=== PATIENT | female | born 1935 | race Caucasian/White ===

== ENCOUNTER → 2024-01-11 13:46 | Outpatient (REF) | payer MEDICARE, SELFPAY | LOC: RAD 13:46 | PROVIDERS: ATTENDING PHYSICIAN Nurse Practitioner Adult Health; FAMILY PHYSICIAN Family Medicine Sports Medicine; REFERRING PHYSICIAN Internal Medicine Cardiovascular Disease | DX: I48.0 Paroxysmal atrial fibrillation (principal) | CPT/HCPCS: 75572; Q9967 ==

== ENCOUNTER 2024-04-24 05:58 | Inpatient (IN) | payer MEDICARE, BC, SELFPAY ==
[2024-04-17 10:43] VITALS: BMI 21.6
[2024-04-17 11:27] LABS: % Basophils 0.8 % (0-2); % Immature Granulocytes 0.2 % (0-0.5); % Lymphocytes 39.8 % (20.5-51.1); % Monocytes 8.1 % (1.7-9.3); % Neutrophils 49.1 % (42.2-75.2); Absolute Basophils 0.1 10^3/uL (0-0.2); Absolute Eosinophils 0.2 10^3/uL (0-0.7); Absolute Lymphocytes 3.6 10^3/uL (1.2-3.4); Absolute Monocytes 0.7 10^3/uL (0.1-0.6); Absolute Neutrophils 4.4 10^3/uL (1.4-6.5); Hematocrit 44.6 % (37.0-47.0); Hemoglobin 14.6 g/dL (12.0-16.0); Mean Corp Hgb Conc. 32.7 g/dL (33.0-37.0); Mean Corpuscular Hgb 28.1 pg (27.0-31.0); Mean Corpuscular Volume 85.9 fL (81.0-99.0); Mean Platelet Volume 10.5 fL (7.4-10.4); Nucleated Red Blood Cells % 0 %; Platelet Count 239 10^3/uL (130-400); Red Blood Cell Count 5.19 10^6/uL (4.20-5.40); Red Cell Dist. Width 14.9 % (11.5-14.5)
[2024-04-17 11:32] LABS: INR 1.18; PT 15.3 Sec (11.4-14.6)
[2024-04-17 11:34] LABS: ALT (SGPT) 25 U/L (0-35); AST (SGOT) 35 U/L (14-36); Albumin 4.5 g/dl (3.5-5.0); Alkaline Phosphatase 84 U/L (38-126); Blood Urea Nitrogen 24 mg/dl (7-17); Calcium 9.4 mg/dl (8.4-10.2); Carbon Dioxide 30 mmol/L (22-30); Chloride 101 mmol/L (98-107); Estimated Creatinine Clearance 42 ml/min; Glucose 95 mg/dl (70-99); Potassium 5.1 mmol/L (3.5-5.1); Sodium 139 mmol/L (135-145); Total Bilirubin 1.1 mg/dl (0.2-1.3); Total Protein 6.9 g/dl (6.3-8.2); eGFR > 60.00
[2024-04-24] VITALS (21 sets, daily range): BP systolic 86–153; BP diastolic 34–59; BMI 22.5
[2024-04-24] MEDS: NSS 500 IV ×2 (06:56→09:40)
--- NOTE | 2024-04-24 07:30 | W.PN.UPDATE ---
Update Note
Progress Note Update
Reviewed Ms. Samuel with the heart team in the preWatchman SDM meeting and discussed a 27mm device, will confirm with intraop imaging. Patient will continue 5 mg Eliquis BID post watchman. Will have 3 month f/u LAURA.
[2024-04-24 08:43] LABS: ACT-LR - POC 221 Seconds (116-155)
--- NOTE | 2024-04-24 08:48 | ITS.CL.PN ---
[employer] Mdm Developer - Procedure Note
Procedure
Procedure Note:
Watchman implantation report
Date: April 24, 2024
History: History of stroke and elevated bleeding risk for multiple falls
Referring: Dr. Brenton Saavedra
Procedure report:
After informed consent and patient safety timeout the patient was sedated under general anesthesia by the anesthesiology service. Dr. Grant performed the LAURA see separate report.
draw fire operator: Ace for watchman implantation
charging machine operator: Eva for vascular access and transseptal puncture
The patient was sedated and the left atrial pended was cleared with LAURA vascular access was performed under direct ultrasound guidance by Dr. Velasquez. An 8 Guatemalan sheath was placed in the right femoral vein and through this sheath a pigtail RF wire
was advanced up to the SVC and exchanged for the watchman sheath and dilator. Under direct LAURA guidance the interatrial fossa was engaged and a low to mid mid stick was performed accessing the left atrium. Heparinization with bolus and drip was
started immediately upon vascular access. The pigtail catheter was engaged in the left atrial appendage and dye shot demonstrated a 23 mm ostium with a greater than 25 mm working depth and a 27 mm device was chosen to engage in close left atrial
appendage.
Utilizing clockwise torque the watchman sheath and 27 mm device engage the distal tip of the appendage and the device was delivered covering the left atrial appendage to the ostium. Tug test demonstrated stable positioning. Ostial position. 20 to
25% compression was noted and shot of the left atrial pended demonstrated no leak and adequate coverage. LAURA also demonstrated no leak or device thrombus apparent. Once we met Pass criteria for device delivery the device was from the
delivery sheath and sheaths and catheters were removed from the left atrium. 25 mg of protamine was given. The access sheath was removed under [id number] suture.
Impression:
27 mm Watchman device
Recommendations:
3 months of half dose oral anticoagulation until LAURA.
Outpatient follow-up with Dr. Saavedra
--- NOTE | 2024-04-24 08:53 | ITS.CL.PN ---
Marine Equipment Engineer - Procedure Note
Procedure
Procedure Note:
WATCHMAN LEFT ATRIAL APPENDAGE OCCLUSION REPORT
Date of Procedure: 04/24/2024
Referring: Dr. Brenton Saavedra MD
Indication: atrial fibrillation with high bleeding risk and high stroke risk
Operators: Darien Velasquez MD, PhD (interventional cardiology); Dr. Jayden Bello MD (electrophysiology); Dr. Hipolito Grant MD (cardiac imaging)
Anesthesia: general anesthesia provided by the anesthesia staff
PROCEDURE: left atrial appendage occlusion with a 27 mm Watchman FLX
ACCESS: 14F right common femoral vein (closure: figure of eight stitch)
ULTRASOUND GUIDED VASCULAR ACCESS (right femoral vein): Ultrasound was utilized for vascular access. The vessel was visualized under ultrasound and noted to be patent. An image of the vessel was stored permanently in the patient's medical record.
Under direct ultrasound guidance, vascular access was obtained using a modified Seldinger technique and a 8 Solomon Islander sheath was placed.
HEMODYNAMIC DATA
LA 10 mmHg
PROCEDURE NARRATIVE:
The patient was intubated and sedated by anesthesiology and then prepped and draped in standard sterile fashion. A LAURA probe was placed by cardiology and imaging performed demonstrating no left atrial appendage thrombus and no pericardial effusion.
Under ultrasound guidance, the right femoral vein was accessed with an 8F sheath placed. Heparin was administered to achieve ACT>300.
The 8F sheath was exchanged over a [employer] RF wire for the Watchman double curve sheath which was advanced to the SVC. The Watchman sheath was then pulled back under fluoroscopic and echo guidance until an appropriate inferior and posterior position
on the septum was achieved. During brief RF application, the wire was advanced through the interatrial septum into the left atrium. The wire was placed in the left upper pulmonary vein as confirmed by fluoroscopy and LAURA. The dilator and sheath
easily tracked across the septum allowing placement of the sheath in the left atrium. Left atrial pressure was measured at 10 mmHg. 250 cc of fluids were given.
A 5F pigtail catheter was advanced through the sheath and placed in the left atrial appendage, and an appendage gram was performed demonstrating anatomy suitable for a 27 mm Watchman FLX device with a 23 mm ostium and greater than 25 mm working
depth. The device was prepped on the back table, the pigtail catheter removed, and the device delivered via the sheath to the left atrial appendage. The device was deployed slowly under continuous fluoroscopic and LAURA visualization. After
deployment, LAURA imaging was performed to assess PASS criteria. The device demonstrated excellent positioning, anchor stability on tug test, appropriate sizing with 20-25% compression, and appropriate seal with no leak at 0, 45, 90, or 135 degrees.
Given PASS criteria were met, the device was then released.
The delivery system retracted back into the sheath and removed from the body. The sheath was retracted into the right atrium with LAURA demonstrating no significant R-L shunt or pericardial effusion. The sheath was removed and the venotomy closed with
[id number] knot. Protamine 25 units was given. The patient was extubated and tolerated the procedure well.
CONCLUSIONS
1. transseptal puncture with LAURA guidance
2. successful deployment of a 27 mm Watchman FLX device under fluoroscopic and LAURA guidance
RECOMMENDATIONS:
1. anticoagulation with Eliquis 2.5 mg BID for 3 months
2. repeat LAURA in 3 months
Copy to: Dr. Brenton Saavedra MD (exhibit carpenter); Dr. Rafael Rodriguez DO (PCP)
Signed: Darien Velasquez MD, PhD
--- NOTE | 2024-04-24 09:51 | PTCARENOTE ---
Bilateral upper extremity BP's w/MAP's 50's. Legs elevated slightly. NSS bolus 250 mls in progress per Sangeeta RISK OFFICER.
--- NOTE | 2024-04-24 13:34 | W.PN.UPDATE ---
Update Note
Progress Note Update
88 yo WF s/p Watchman device implant (same day). She denies cp, sob, lyndsey diet, voiding, EKG SR 1deg AVB, R fem c/d/i no HT, soft. She will resume Eliquis tonight. Activity restrictions reviewed. She will have f/u LAURA in 3 mo. She will f/u dca in 1
mo. She is for d/c home after 2pm.
--- NOTE | 2024-04-24 15:33 | W.DS.TRANS ---
DC Summary - Pad Tufter
-
Discharge Instructions:
Discharge Diagnosis/Procedures Atrial fibrillation post Watchman device
Diet Low Cholesterol
Driving Restrictions No driving for 24 hours
Others Tests Follow Up LAURA has been scheduled for you at
[facility] on 07/19/2024 with
Jaylan. Your pre-admission testing appointment
is 07/12/2024 at 11:20am at [facility],
Ground Floor of the [facility].
Instructions:
Stand-Alone Forms: DC Instructions- Cath/EP Lab
Changes to Home Medications: No
Discharge Medications:
DC Medications w/original date entered in [employer]
apixaban 2.5 mg tablet (Eliquis) 2.5 mg PO BID 04/13/24
ascorbic acid (vitamin C) 500 mg tablet (Vitamin C) 500 mg PO DAILY 04/13/24
azilsartan medoxomil 40 mg tablet (Edarbi) 40 mg PO DAILY 04/13/24
calcium 500 mg (as carbonate)-vitamin D3 5 mcg (200 unit) tablet (Calcium 500 + D) 1 tab PO DAILY 04/13/24
cholecalciferol (vitamin D3) 50 mcg (2,000 unit) capsule (Vitamin D3) 50 mcg PO DAILY 04/13/24
magnesium 200 mg tablet 400 mg PO DAILY 04/13/24
metoprolol succinate 25 mg tablet,extended release 24 hr 12.5 mg PO DAILY 04/13/24
rosuvastatin 10 mg tablet 10 mg PO DAILY 04/13/24
spironolactone 25 mg tablet 25 mg PO DAILY 04/13/24
zinc 50 mg tablet 50 mg PO DAILY 04/13/24
levothyroxine 50 mcg tablet 25 mcg PO DAILY 04/17/24
Home Medication Changes
Pending Results: No
== END 2024-04-24 14:00 | disposition home or self-care (01) | DRG 274 ==
LOC: CATH-IN 05:58
PROVIDERS: Internal Medicine Cardiovascular Disease; ADMITTING PHYSICIAN Internal Medicine Cardiovascular Disease; FAMILY PHYSICIAN Family Medicine Sports Medicine
PROC: 02L73DK Occlusion of Left Atrial Appendage with Intraluminal Device, Percutaneous Approach (ICD-10-PCS; 2024-04-24)
PROC: B246ZZ4 Ultrasonography of Right and Left Heart, Transesophageal (ICD-10-PCS; 2024-04-24)
PROC: B24CZZ4 Ultrasonography of Pericardium, Transesophageal (ICD-10-PCS; 2024-04-24)
DX: I48.0 Paroxysmal atrial fibrillation (principal); I49.3 Ventricular premature depolarization; I44.0 Atrioventricular block, first degree; I10 Essential (primary) hypertension; I25.10 Atherosclerotic heart disease of native coronary artery without angina pectoris; E78.5 Hyperlipidemia, unspecified; E03.9 Hypothyroidism, unspecified; E04.1 Nontoxic single thyroid nodule; N28.9 Disorder of kidney and ureter, unspecified; R00.1 Bradycardia, unspecified; R26.89 Other abnormalities of gait and mobility; I69.398 Other sequelae of cerebral infarction; I69.311 Memory deficit following cerebral infarction; Z79.01 Long term (current) use of anticoagulants; Z96.643 Presence of artificial hip joint, bilateral; Z96.652 Presence of left artificial knee joint; Z79.890 Hormone replacement therapy; Z79.899 Other long term (current) drug therapy
CPT/HCPCS: 33340; 36415; 76937; 80053; 85025; 85347; 85610; 86850; 86900; 86901; 87070; 93005; 93355; C1892; C1894

== ENCOUNTER → 2024-07-12 11:12 | Outpatient (REF) | payer MEDICARE, BC, SELFPAY | LOC: SDSPAT 11:12 | PROVIDERS: ATTENDING PHYSICIAN Internal Medicine Cardiovascular Disease; FAMILY PHYSICIAN Family Medicine Sports Medicine; OTHER PHYSICIAN Internal Medicine Cardiovascular Disease | DX: I48.0 Paroxysmal atrial fibrillation (principal) | CPT/HCPCS: 93005 ==

== ENCOUNTER 2024-07-19 07:14 | Day surgery (SDC) | payer MEDICARE, BC, SELFPAY ==
[2024-07-12 11:56] VITALS: BMI 21.8
--- NOTE | 2024-07-12 13:20 | HPS.HSE ---
Family Physician
-
Family Physician: NO INTERVIEW UNKNOWN
Chief Complaint
-
Paroxysmal atrial fibrillation.
History of Present Illness
The patient is an 88-year-old female presenting today for paroxysmal atrial fibrillation. The patient reports she is relatively asymptomatic despite this diagnosis. She is currently rate controlled without the use of pharmacological
therapy. She has been compliant with Eliquis for oral anticoagulation due to a [id number] score of 6. 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 She
does report residual balance difficulties and memory loss secondary to her stroke. Given her balance difficulties, she has had recent falls. She was considered to be at an elevated risk for thromboembolic events as well as bleeding with her known
ambulatory dysfunction. She did proceed with Watchman implantation in April 2024 in the hopes of discontinuing oral anticoagulation in the near future. She is 3 months post-Watchman and will undergo a post-procedural transesophageal echocardiogram
to assess the stability of her Watchman device. She denies any current complaints today such as chest pain, shortness of breath, palpitations, nausea, vomiting, diarrhea, lightheadedness, dizziness, cough, sore throat, or fever.
Medical History
Past Medical History
Past Medical History: Reports Other
Additional Past Medical History:
1. Paroxysmal atrial fibrillation, status post Watchman implantation 04/24/2024; pharmacological therapy with Metoprolol Succinate and oral anticoagulation with Eliquis.
2. PACs and PVCs.
3. Sinus bradycardia.
4. First degree AV block.
5. Hypertension.
6. Hyperlipidemia.
7. Coronary artery disease, moderate per chest CTA 01/2024.
8. Pulmonary nodules.
9. Documented renal insufficiency.
10. Colon polyps.
11. CVA, 08/2023, treated with thrombolysis/thrombectomy of left middle cerebral artery occlusion; residual balance difficulties and memory loss reported.
12. Ambulatory dysfunction with recent falls secondary to above.
13. Osteoarthritis, status post bilateral total hip arthroplasty, 2005, and left total knee arthroplasty 2019.
14. Right rotator cuff arthropathy, treated conservatively.
15. Hypothyroidism.
16. Right thyroid nodule.
17. Melanoma, back, status post excision.
18. 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
Past Surgical History: Reports Other
Additional Past Surgical History:
1. Watchman implant.
2. Thrombectomy of left middle cerebral artery occlusion.
3. Bilateral hip replacement.
4. Left knee replacement.
5. Hysterectomy.
6. Bladder suspension.
7. Cholecystectomy.
8. Knee arthroscopy.
9. Bilateral carpal tunnel release.
10. Right hand surgery with hardware.
11. Melanoma excision.
12. Macular repair of left eye.
13. Bilateral cataract extraction.
14. Colonoscopy x3.
Social History
Tobacco: Non-smoker
Alcohol: None
Personal:
Living: Other (The patient lives in a three-story home with her and her son who stays there temporarily. She primarily resides on the 1st and 2nd floors of her home.)
Family History
Family History: Not pertinent
Allergies / Home Medications
Allergy/Medication List:
Home medications:
1. Eliquis 2.5 mg p.o. twice a day.
2. Ascorbic acid 500 mg p.o. daily.
3. Edarbi 40 mg p.o. daily.
4. Calcium carbonate and vitamin D3 one tablet p.o. daily.
5. Cholecalciferol 50 mcg p.o. daily.
6. Levothyroxine 25 mcg p.o. daily.
7. Magnesium 400 mg p.o. daily.
8. Rosuvastatin 10 mg p.o. daily.
9. Spironolactone 25 mg p.o. daily.
10. Zinc 50 mg p.o. daily.
11. Topamax 25 mg p.o. daily.
Allergies: Amlodipine.
Review of Systems
-
A 12 point ROS was completed and negative except as noted: Yes
Physical Exam
Vital Signs
Blood pressure 124/50. Heart rate 72. Respirations 18. Pulse ox 98% on room air.
Height 5 feet, 2 inches. Weight 54 kg. BMI 21.8.
Physical Exam
General: Well Developed, Well Nourished and No Apparent Distress
HEENT: NormoCephalic, Moist mucous membranes and Atraumatic
Respiratory: Clear
Cardiac: Irregular Rhythm
GI: Soft, Non Tender and Non Distended
Musculoskeletal: No Edema and Other (Unsteady at times with ambulation. )
Skin: Warm and Dry
Neuro: AO x 3 and Other (Short-term memory loss noted. )
Laboratory Results
-
EKG 07/12/2024: Atrial flutter with variable AV block. Left axis deviation. Possible anterior infarct, cited on or before April 17, 2024.
Impression/Plan
-
IMPRESSION/PLAN:
1. Paroxysmal atrial fibrillation: Given she is 3 months post-Watchman, she will proceed with a transesophageal echocardiogram with Dr. Jarad Tian on 07/19/2024. The benefits and risks of the procedure have been explained to the patient. The
patient understands these risks and wishes to proceed. If her Watchman device is well seated and without significant leaks, she likely will be transitioned off of Eliquis and onto daily Plavix/Aspirin vs a baby Aspirin alone indefinitely.
2. Recent left eye visual disturbance: The patient reports intermittent episodes of left eye peripheral 'flurries' which typically self resolve within minutes. These episodes have occurred a handful of times over the last few weeks. Her
scientific artist, Dr. Benoit Burton, could not identify an ophthalmic cause. Her routine patternmaker plastics, Dr. Todd Saavedra, felt these events were not likely to be cardioembolic. An assessment with her primary care physician, Dr. Rafael Rodriguez, was set
up prior to her procedure. Dr. Rodriguez believes these events are likely the result of ocular migraines and has started the patient on Topamax 25 mg p.o. daily. She will be following up with her neurologist in the near future.
== END 2024-07-19 10:30 | disposition home or self-care (01) ==
LOC: CATH 07:14
PROVIDERS: ATTENDING PHYSICIAN Internal Medicine Cardiovascular Disease; FAMILY PHYSICIAN Family Medicine Sports Medicine; OTHER PHYSICIAN Internal Medicine Cardiovascular Disease
DX: I48.0 Paroxysmal atrial fibrillation (principal); I44.0 Atrioventricular block, first degree; I10 Essential (primary) hypertension; E78.5 Hyperlipidemia, unspecified; I25.10 Atherosclerotic heart disease of native coronary artery without angina pectoris; R91.8 Other nonspecific abnormal finding of lung field; N28.9 Disorder of kidney and ureter, unspecified; Z86.0100 Personal history of colon polyps, unspecified; Z86.73 Personal history of transient ischemic attack (TIA), and cerebral infarction without residual deficits; R41.3 Other amnesia; R26.2 Difficulty in walking, not elsewhere classified; M19.90 Unspecified osteoarthritis, unspecified site; Z96.643 Presence of artificial hip joint, bilateral; Z96.652 Presence of left artificial knee joint; E03.9 Hypothyroidism, unspecified; E04.1 Nontoxic single thyroid nodule; Z85.820 Personal history of malignant melanoma of skin; H53.9 Unspecified visual disturbance; Z90.710 Acquired absence of both cervix and uterus; Z90.49 Acquired absence of other specified parts of digestive tract; Z98.890 Other specified postprocedural states; Z79.01 Long term (current) use of anticoagulants; Z79.85 Long-term (current) use of injectable non-insulin antidiabetic drugs; Z79.899 Other long term (current) drug therapy; Z88.8 Allergy status to other drugs, medicaments and biological substances; I48.92 Unspecified atrial flutter; I08.1 Rheumatic disorders of both mitral and tricuspid valves; Z79.890 Hormone replacement therapy
CPT/HCPCS: 93312; 93320; 93325

== ENCOUNTER → 2025-01-05 09:15 | Outpatient (REF) | payer MEDICARE, BC, SELFPAY | LOC: RAD 09:15 | PROVIDERS: ATTENDING PHYSICIAN Family Medicine Sports Medicine | DX: R91.1 Solitary pulmonary nodule (principal) | CPT/HCPCS: 71250 ==